=== PATIENT | male | born 1995 | race Caucasian/White ===

== ENCOUNTER 2024-02-28 07:26 | Outpatient (CLI) | payer OTHER ==
[2024-02-28] MEDS ORDERED: Gadobenate Dimeglumine 2 ML, Sodium Chloride 0.9% 250 ML 10 ML, Iopamidol 8 ML, Lidocai... FS ONE (08:00)
== END 2024-02-28 07:27 | disposition home or self-care (01) ==
LOC: CSHRAD 07:26
PROVIDERS: ATTEND Orthopaedic Surgery
DX: S43.432A Superior glenoid labrum lesion of left shoulder, initial encounter (principal); S46.012A Strain of muscle(s) and tendon(s) of the rotator cuff of left shoulder, initial encounter; M19.012 Primary osteoarthritis, left shoulder; M25.712 Osteophyte, left shoulder; M25.812 Other specified joint disorders, left shoulder; M89.512 Osteolysis, left shoulder
CPT/HCPCS: 23350; 77002; A9577; J0171; J7050; Q9967